=== PATIENT | male | born 1965 | race Caucasian/White ===

== ENCOUNTER 2021-11-27 11:17 | Emergency (ER) | payer MEDICAID, SELFPAY ==
[2021-11-27 11:19] VITALS: BP 158/104; PULSE 81; RESP 22; TEMP 36.9; O2SAT 97; BMI 24.3
[2021-11-27] MEDS: Fluorescein 1 MG STRIP 1 STRIP EACH EYE (12:12)
[2021-11-27] MEDS: Tetracaine 0.5% Ophthalmic Bottle 1 DRP EACH EYE (12:12)
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
[2021-11-27] MEDS: Erythromycin Base 1 OPTH.TUBE 1 APPLIC EACH EYE (12:39)
== END 2021-11-27 12:40 | disposition home or self-care (01) ==
PROVIDERS: Emergency Provider Emergency Medicine; Visit Provider Emergency Medicine
DX: T52.0X1A Toxic effect of petroleum products, accidental (unintentional), initial encounter (principal); H10.213 Acute toxic conjunctivitis, bilateral; I10 Essential (primary) hypertension; R20.8 Other disturbances of skin sensation; K21.9 Gastro-esophageal reflux disease without esophagitis; Z87.891 Personal history of nicotine dependence; Z79.899 Other long term (current) drug therapy
CPT/HCPCS: 99284; J7030

== ENCOUNTER 2022-06-09 11:21 | Emergency (ER) | payer MEDICAID, SELFPAY ==
[2022-06-09 11:23] VITALS: BP 152/103; PULSE 80; RESP 16; TEMP 36.6; O2SAT 99; BMI 25.1
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
--- NOTE | 2022-06-09 12:00 | CT_ITS ---
STUDY: CT BRAIN WITHOUT CONTRAST REASON FOR EXAM: Male, 56 years old. Pain RADIATION DOSAGE (If Supplied By Facility): CTDIvol = ( 44.99 ) mGy, DLP = ( 863.60 ) mGycm TECHNIQUE: Transaxial CT imaging of the brain was performed without administration of intravenous contrast material. Individualized dose optimization techniques were used for this CT. COMPARISON: No relevant priors. FINDINGS: Normal soft tissue structures. Normal calvarium. Normal size ventricles and extra-axial spaces for the patient''s age. Normal white matter tracts of the cerebral hemispheres. There are small punctate calcifications of the basal ganglia which are seen in the aging brain as a normal variant. Normal brainstem. Normal cerebellum. There is no intracranial hemorrhage. There are no findings of an acute ischemic infarction. Normal visualized paranasal sinuses. CT/Brain/Head without Contrast IMPRESSION: Normal unenhanced CT scan of the brain. Electronically Signed: Bret Hinton MD at 13:50 EST ,
[2022-06-09] MEDS: DiphenhydrAMINE 50 MG/ML Syringe 25 MG IV (12:33)
[2022-06-09] MEDS: 0.9% Normal Saline 1,000 ML 999 ML IV (12:33)
[2022-06-09] MEDS: proCHLORPERazine 10 MG/2 ML Vial IV (12:33)
[2022-06-09 12:35] VITALS: PULSE 80; RESP 18; O2SAT 94
[2022-06-09 12:43] LABS: Absolute Lymphocyte Count 1.91 X10^3/uL (0.83-4.51); Absolute Neutrophil Count 4.2 X10^3/uL (2.0-7.7); Basophil# 0.03 X10^3/uL; Basophil% 0.4 % (0-1); Eosinophil# 0.25 X10^3/uL; Eosinophils% 3.6 % (0-5); Hematocrit 42.1 % (40-54); Hemoglobin 14.4 g/dL (13.0-16.5); Lymphocyte # 1.91 X10^3/ul (0.83-4.51); Lymphocyte % 27.2 % (19-41); Mean Corp Hgb Conc 34.2 g/dL (32-36); Mean Corpuscular Hgb 28.6 pg (27.0-32.0); Mean Corpuscular Volume 83.5 fL (80-94); Mean Platelet Vol. 8.7 fl (6.2-12.0); Monocyte# 0.64 X10^3/uL; Monocyte% 9.1 % (0-10); NRBC Flagged by Analyzer 0 % (0-5); Neutrophil # 4.15 X10^3/uL (2.7-7.7); Neutrophil % 59.1 % (47-70); Platelet Count 264 K/mm3 (150-450); RBC Distribution Width CV 12.6 % (11.6-14.6); RBC Distribution Width SD 38.1 fl (35.1-43.9); Red Blood Count 5.04 M/mm3 (4.6-6.2)
[2022-06-09 12:56] LABS: Anion Gap 3 (5-15); BUN 27 mg/dL (7-18); BUN/Creat Ratio 31.8 RATIO (10-20); Calcium,Total 8.7 mg/dL (8.5-10.1); Chloride 109 mmol/L (98-107); Creatinine, Serum 0.85 mg/dL (0.70-1.30); EST Glomerular Filtration Rate 98 mL/min (>60); Est Glom Filt Rate - Afr Amer 119 mL/min (>60); Estimated Creatinine Clearance 97.81 ml/min; Glucose 99 mg/dL (74-106); Potassium 4.2 mmol/L (3.5-5.1); Sodium Level 139 mmol/L (136-145)
[2022-06-09 13:14] VITALS: BP 115/84; BP 115/85; BP 123/84; PULSE 74; PULSE 85; PULSE 87
[2022-06-09 15:06] VITALS: BP 119/80
== END 2022-06-09 15:07 | disposition home or self-care (01) ==
PROVIDERS: Emergency Provider Emergency Medicine; Visit Provider Emergency Medicine
DX: S06.0X0A Concussion without loss of consciousness, initial encounter (principal); Z87.891 Personal history of nicotine dependence; I10 Essential (primary) hypertension; E78.5 Hyperlipidemia, unspecified; R26.2 Difficulty in walking, not elsewhere classified; K21.9 Gastro-esophageal reflux disease without esophagitis; I25.2 Old myocardial infarction; W22.8XXA Striking against or struck by other objects, initial encounter
CPT/HCPCS: 70450; 80048; 85025; 96361; 96374; 96375; 99284; J7030

== ENCOUNTER 2023-08-09 15:25 | Emergency (ER) | payer MEDICAID, SELFPAY ==
[2023-08-09 15:26] VITALS: BP 152/97; PULSE 86; RESP 18; TEMP 36.4; O2SAT 98; BMI 28.3
--- NOTE | 2023-08-09 16:02 | EDS_ITS ---
HPI <FORTINO Paniagua - Last Filed: 08/09/23 17:58> History of Present Illness Chief Complaint: Upper Extremity Injury Narrative Narrative: Patient presenting today due to pain to his left second through fourth fingers after an injury that occurred on Saturday. He reports that he was wearing a glove and was using a drill bit when the drill bit caught the glove and caused it to twist, causing pain to his fingers. He has been using Motrin as needed fo r pain. He denies any other injury. He is right-handed. PFSH <FORTINO Paniagua - Last Filed: 08/09/23 17:58> COUNT INCLUDES THE [facility] Medical History GERD (gastroesophageal reflux disease) Heart attack Hyperlipidemia Hypertension Home Medications famotidine 40 mg tablet 40 mg PO QHS 08/09/23 [History Last Taken 08/08/23] omeprazole 20 mg capsule,delayed release 20 mg PO BID 08/09/23 [History Last Taken 08/09/23] Allergy/AdvReac Type Severity Reaction Status Date / Time acetaminophen [From Vicodin] AdvReac Nausea Verified 08/09/23 15:26 hydrocodone bitartrate AdvReac Nausea Verified 08/09/23 15:26 [From Vicodin] naproxen [From Naprosyn] AdvReac Nausea/Vom/ Verified 08/09/23 15:26 Diarrhea prednisone AdvReac Other Verified 08/09/23 15:26 tramadol HCl [From Ultram] AdvReac Nausea Verified 08/09/23 15:26 Surgical History History of tonsillectomy Social History Smoking Status: Former smoker substance use type: does not use ROS <FORTINO Paniagua - Last Filed: 08/09/23 17:58> ROS ED Constitutional Constitutional ED: Denies chills or fever(s) Cardiovascular Cardiovascular: Denies chest pain Respiratory/Chest Respiratory/Chest: Denies cough or dyspnea Gastrointestinal Gastrointestinal: Denies abdominal pain, nausea or vomiting Musculoskeletal Musculoskeletal: Reports arthralgias Integumentary Denies Abrasions Neurologic Neurologic: Denies paresthesias EXAM <FORTINO Paniagua - Last Filed: 08/09/23 17:58> Physical Exam Const Vital Signs: 08/09/23 15:26 Temperature 97.5 F L Temperature Source Temporal Pulse Rate 86 Respiratory Rate 18 Blood Pressure 152/97 H Blood Pressure Mean 115 Pulse Ox 98 Oxygen Delivery Method Room Air Positive well nourished, well developed and no apparent distress General Appearance ED: well developed HEENT Reports normocephalic and head/scalp atraumatic Mouth ED: Yes moist mucous membranes normal Eyes PERRL and EOMs intact bilaterally Neck full ROM and supple Chest Wall inspection of chest normal Resp normal respiratory effort and clear to auscultation bilaterally Cardio regular rate and regular rhythm GI soft to palpation, non-tender, non-distended and no masses Back/Spine normal ROM and normal to inspection Extremity normal to inspection and full ROM Extremity Narrative: Pain to the second through fourth MCP joints, full flexion extension at the left MCP, PIP, DIP joints of the left hand. Slight enlargement to the left third MCP joint. Left radial pulse 2+, good capillary refill, sensation intact. Neuro oriented x3, CN's II-XII intact bilaterally, moves all extremities, no focal motor deficits and no sensory deficits noted Sensorium / Orientation: awake and alert Psych mental status grossly normal and thought process normal Skin no rashes or lesions noted and no wounds MDM <FORTINO Paniagua - Last Filed: 08/09/23 17:58> [facility] Narrative Medical decision making narrative: Presenting today with pain to his left hand after a torque injury that occurred Saturday when his drill bit caught his glove and caused pain to his second through fourth fingers. Patient has slight enlargement to the left third MCP joint but otherwise no other abnormality. Full range of motion to the left hand. X-ray obtained to rule out fracture and is negative for acute findings, it does show arthritis. He will be given an Malvin wrap, RICE instructions discussed, he can alternate Tylenol and ibuprofen as needed for his pain. I will give him a orthopedic referral and he will be discharged home in stable condition. <Dr. Bret Ruiz MD - Last Filed: 08/10/23 01:58> [facility] Treatment and Re-Evaluation Narrative: I have personally performed a face to face assessment of the patient and have reviewed the NINA Note. I performed a substantive portion of the visit including all aspects of the following. My del rosario findings include: History is holding a drill that became stuck and caused his hand to twist as he was holding it, causing injury and pain to MCPJ 2-4 left hand. Exam is some tenderness and swelling to the affected MCPJ's above. No other areas of significant tenderness. Full range of motion of all finger joints, without any rotational deformities. Neurovascularly intact distally all extensor, FDS, FDP tender function intact. Medical Decison Making three-view x-ray series of the left hand shows unusual chronic abnormalities of the metacarpal heads 3 and 5 on my interpretation with no acute fractures or dislocations. Radiology interpretation reviewed, basically consistent with arthritis. Patient reassured, treat supportively for sprain. Other additions or changes: [None] Discharge Plan Triage Chief Complaint: Upper Extremity Injury ED Midlevel Provider: Radha Hyde ED Provider: Bret Ruiz Dx/Rx/DC Orders Clinical Impression: Finger sprain Instructions: ED Finger Sprain Prescriptions: No Action famotidine 40 mg tablet 40 mg PO QHS omeprazole 20 mg capsule,delayed release(DR/EC) 20 mg PO BID Primary Care Provider: Care Physician,No Primary Referrals: Nils Calhoun MD [Med Staff - Active Staff] - 10-14 Days if not better Care Physician,No Primary [Primary Care Provider] - Activity Restrictions/Additional Instructions: You can continue to alternate Tylenol and ibuprofen for your pain as needed. Follow-up with orthopedics if no improvement of your symptoms. Disposition Disposition: Home, Self Care Discharge Date/Time: 08/09/23 17:06
--- NOTE | 2023-08-09 16:06 | RAD_ITS ---
STUDY: X-RAY - LEFT HAND REASON FOR EXAM: Male, 58 years old. Injury, pain TECHNIQUE: 3 view(s) of the hand. COMPARISON: None. FINDINGS: There is joint space narrowing of the radiocarpal articulation consistent with degenerative arthrosis. Normal distal radioulnar joint. Bones and metacarpal fracture, there are subchondral changes in the lunate without cortical disruption or flattening. Normal carpal articulations Normal carpometacarpal articulation of the thumb. Normal second through fifth carpometacarpal joints. Normal metacarpi. There is degenerative arthrosis of the metacarpophalangeal (MCP) joints. Normal interphalangeal joint of the thumb. Normal proximal and distal phalanges of the thumb. Normal metacarpophalangeal joints of the second, fourth and fifth fingers. Degenerative narrowing of the third metacarpal phalangeal joint with subchondral changes in the third metacarpal head, and proximal aspect of the proximal third phalanx Normal proximal and distal interphalangeal joints of the second through fifth fingers. Normal phalanges of the second through fifth fingers. The soft tissue structures are unremarkable. 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 Electronically Signed: Markie Nieves MD at 16:28 EDT ,
[2023-08-09 17:04] VITALS: BP 148/76; PULSE 84; RESP 16; TEMP 36.9; O2SAT 97
== END 2023-08-09 17:06 | disposition home or self-care (01) ==
PROVIDERS: Emergency Provider Emergency Medicine; Visit Provider Emergency Medicine
DX: S63.611A Unspecified sprain of left index finger, initial encounter (principal); Z87.891 Personal history of nicotine dependence; K21.9 Gastro-esophageal reflux disease without esophagitis; Z79.899 Other long term (current) drug therapy; E78.5 Hyperlipidemia, unspecified; I10 Essential (primary) hypertension; S63.613A Unspecified sprain of left middle finger, initial encounter; S63.615A Unspecified sprain of left ring finger, initial encounter; X58.XXXA Exposure to other specified factors, initial encounter; Y93.89 Activity, other specified
CPT/HCPCS: 73130; 99282